=== PATIENT | male | born 1945 | race Two or more races ===

== ENCOUNTER 2025-04-06 10:03 | Outpatient (RCR) | payer MEDICAID, SELFPAY ==
--- NOTE | 2025-04-06 11:41 | CTCCONSULT_ITS ---
[facility] [address], [place] [address] Consultation Note Date: 04/06/2025 MR#: [id number] Name: PRISCILLA BUITRAGO : 1945 Dx: Prostate cancer C61 Referring physician. Dale Dumont MD reason for consultation. Grade 6 group 1 PSA 8.4 referred for radiation oncology consultation. 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 Right prostate was benign. Patient had chest CT February 12, 2024 revealing multiple pulmonary nodules stable from prior CT. due to his age comorbidities and early stage prostate watchful waiting is what family agreed to. Recently saw urologist Dr. Dumont who recommended be followed up at the cancer center. Denies any bone pain or significant pelvic symptoms. Past Medical History: Prior CVA diabetes prior NM Meds. Levothyroxine digoxin spironolactone lisinopril furosemide metformin aspirin carvedilol atorvastatin DOS Allergies none to meds Family history. 1 sister with breast lung cancer and 1 brother with colon cancer Social History: Originally from [place] denies smoking drinking Review of Systems: Physical Exam: General: Adequate nourished appearing gentleman in no acute distress HEENT: Atraumatic normocephalic extraocular is intact no oral lesions no cervical or supraclavicular apathy CV: Chest clear to station heart regular rate and rhythm ABD: Soft no organomegaly tenderness EXT: No signs of clubbing or edema. Assessment: Patient with history of PSA 8.4 grade 6 group 1 left prostate CA diagnosed 2023. Family agreed to watchful waiting. 2. Will check new PSA and get a PET scan and see patient again in 2 months about possible treatment. 3. Thank you very much for allowing me to evaluate this patient Cc: Dale Dumont MD Electronically signed by: Popeye Viramontes MD, DABR 04/06/2025 11:38 AM
== END 2025-04-07 23:59 | disposition home or self-care (01) ==
LOC: SCTC 10:03
PROVIDERS: PCP Physician Assistant; Referring Provider Surgery; Visit Provider Radiology Therapeutic Radiology
DX: C61 Malignant neoplasm of prostate (principal); E11.9 Type 2 diabetes mellitus without complications; Z79.84 Long term (current) use of oral hypoglycemic drugs; Z86.73 Personal history of transient ischemic attack (TIA), and cerebral infarction without residual deficits; Z79.82 Long term (current) use of aspirin
CPT/HCPCS: 99213; G0463